=== PATIENT | male | born 1970 | race Two or more races ===

== ENCOUNTER 2020-03-21 16:36 | Emergency (ER) | payer OTHER ==
[~2020-03-21] VITALS: Ht 172.7 cm; Wt 105.7 kg
[2020-03-21] MEDS ORDERED: HUMULIN R500 UNIT/2 SQ (16:50)
[2020-03-21] MEDS ORDERED: GLIMEPIRIDE4 MG (16:50)
[2020-03-21] MEDS ORDERED: COZAAR50 MG PO (16:51)
[2020-03-21] MEDS ORDERED: RESTORIL30 M1 PO (16:51)
[2020-03-21] MEDS ORDERED: ADULT LOW DOSE81 M1 PO (16:51)
[2020-03-21] MEDS ORDERED: LIPITOR40 MG PO (16:51)
[2020-03-21] MEDS ORDERED: EFFEXOR XR37.5 MG PO (16:52)
[2020-03-21] MEDS ORDERED: TRADJENTA5 MG PO (16:52)
[2020-03-21] MEDS ORDERED: GEMFIBROZIL600 MG (16:53)
[2020-03-21] MEDS ORDERED: AMOXICILLIN875 MG PO (16:54)
[2020-03-21] MEDS ORDERED: PRILOSEC OTC20 MG PO (16:54)
[2020-03-21] MEDS ORDERED: CLONAZEPAM2 MG PO (16:54)
[2020-03-21] MEDS ORDERED: CARAFATE1 GM PO (16:55)
[2020-03-21] MEDS ORDERED: LANTUS SOL100 UNIT/1 SQ (16:55)
[2020-03-21] MEDS ORDERED: DICLOFENAC SODI75 MG PO (18:03)
== END 2020-03-21 18:36 | disposition home or self-care (01) ==
LOC: ER 16:36
DX: M54.89 Other dorsalgia (principal); R10.11 Right upper quadrant pain; Z03.818 Encounter for observation for suspected exposure to other biological agents ruled out

== ENCOUNTER 2020-03-24 19:11 | Emergency (ER) | payer OTHER ==
[~2020-03-24] VITALS: Ht 172.7 cm; Wt 105.7 kg
[~2020-03-24 19:11] MED LIST: ADULT LOW DOSE81 M1 PO; AMOXICILLIN875 MG PO; CARAFATE1 GM PO; CLONAZEPAM2 MG PO; COZAAR50 MG PO; DICLOFENAC SODI75 MG PO; EFFEXOR XR37.5 MG PO; GEMFIBROZIL600 MG; GLIMEPIRIDE4 MG; HUMULIN R500 UNIT/2 SQ; LANTUS SOL100 UNIT/1 SQ; LIPITOR40 MG PO; PRILOSEC OTC20 MG PO; RESTORIL30 M1 PO; TRADJENTA5 MG PO
== END 2020-03-24 21:19 | disposition home or self-care (01) ==
LOC: ER 19:11
DX: H66.93 Otitis media, unspecified, bilateral (principal); R51.9 Headache, unspecified

== ENCOUNTER 2020-03-30 16:57 | Emergency (ER) | payer OTHER ==
[~2020-03-30] VITALS: Ht 172.7 cm; Wt 105.7 kg
[2020-03-30] MEDS ORDERED: NAPROXEN SODIU275 MG PO (21:14)
[2020-03-30] MEDS ORDERED: ACETAMINOPHEN650 M2 PO (21:14)
== END 2020-03-30 21:50 | disposition home or self-care (01) ==
LOC: ER 16:57
DX: H92.02 Otalgia, left ear (principal); H72.92 Unspecified perforation of tympanic membrane, left ear

== ENCOUNTER → 2020-04-11 | Emergency (ER) | payer OTHER ==
[~2020-04-11] VITALS: Ht 172.7 cm; Wt 65.3 kg
[~2020-04-11] MED LIST changes: +ACETAMINOPHEN650 M2 PO; +NAPROXEN SODIU275 MG PO
== END | disposition home or self-care (01) ==
LOC: ER 18:23
DX: U07.1 COVID-19 (principal); B34.9 Viral infection, unspecified

== ENCOUNTER 2020-04-15 16:06 | Emergency (ER) | payer OTHER ==
[~2020-04-15] VITALS: Ht 172.7 cm; Wt 54.4 kg
== END 2020-04-16 02:32 | disposition home or self-care (01) ==
LOC: ER 16:06
DX: B34.9 Viral infection, unspecified (principal); Z20.828 Contact with and (suspected) exposure to other viral communicable diseases

== ENCOUNTER 2020-06-21 11:15 | Outpatient (CLI) | payer OTHER | END 2020-06-21 11:19 | disposition home or self-care (01) | LOC: RAD 11:15 | PROVIDERS: ATTEND Orthopaedic Surgery | DX: M51.36 Other intervertebral disc degeneration, lumbar region (principal) ==

== ENCOUNTER 2020-08-04 15:30 | Emergency (ER) | payer OTHER ==
[~2020-08-04] VITALS: Ht 172.7 cm; Wt 108.9 kg
[2020-08-04] MEDS ORDERED: AMBIEN5 MG (15:47)
[2020-08-04] MEDS ORDERED: HUMALOG100 UNIT/2 (15:47)
[2020-08-04] MEDS ORDERED: ACID REDUCER20 M1 (15:48)
[2020-08-04] MEDS ORDERED: CARAFATE1 GM (15:48)
[2020-08-04] MEDS ORDERED: PEPCID AC20 MG PO (23:43)
[2020-08-04] MEDS ORDERED: ULTRAM50 MG PO (23:43)
== END 2020-08-05 00:04 ==
LOC: ER 15:30
DX: R10.12 Left upper quadrant pain (principal)

== ENCOUNTER 2020-08-15 18:13 | Emergency (ER) | payer OTHER ==
[~2020-08-15] VITALS: Ht 172.7 cm; Wt 108.9 kg
[~2020-08-15 18:13] MED LIST changes: +ACID REDUCER20 M1; +AMBIEN5 MG; +CARAFATE1 GM; +HUMALOG100 UNIT/2; +PEPCID AC20 MG PO; +ULTRAM50 MG PO
[2020-08-15] MEDS ORDERED: NABUMETONE750 MG PO (19:50)
== END 2020-08-15 20:10 | disposition home or self-care (01) ==
LOC: ER 18:13
DX: S20.213A Contusion of bilateral front wall of thorax, initial encounter (principal); S80.01XA Contusion of right knee, initial encounter; W10.8XXA Fall (on) (from) other stairs and steps, initial encounter; Y93.89 Activity, other specified; Y92.89 Other specified places as the place of occurrence of the external cause; Y99.8 Other external cause status

== ENCOUNTER 2020-09-05 11:29 | Outpatient (CLI) | payer OTHER ==
[~2020-09-05 11:29] MED LIST changes: +NABUMETONE750 MG PO
== END 2020-09-05 11:35 | disposition home or self-care (01) ==
LOC: RAD 11:29
PROVIDERS: ATTEND Chiropractor
DX: M99.01 Segmental and somatic dysfunction of cervical region (principal); M99.02 Segmental and somatic dysfunction of thoracic region; M99.03 Segmental and somatic dysfunction of lumbar region; M99.05 Segmental and somatic dysfunction of pelvic region

== ENCOUNTER 2021-01-18 16:12 | Emergency (ER) | payer OTHER ==
[~2021-01-18] VITALS: Ht 172.7 cm; Wt 110.7 kg
[2021-01-18] MEDS ORDERED: NORFLEX100MG PO (20:11)
[2021-01-18] MEDS ORDERED: AMRIX30 MG PO (20:11)
== END 2021-01-19 | disposition home or self-care (01) ==
LOC: ER 16:12
DX: M25.512 Pain in left shoulder (principal); M25.511 Pain in right shoulder; M62.512 Muscle wasting and atrophy, not elsewhere classified, left shoulder; M62.511 Muscle wasting and atrophy, not elsewhere classified, right shoulder; Z03.818 Encounter for observation for suspected exposure to other biological agents ruled out

== ENCOUNTER 2021-02-25 18:33 | Emergency (ER) | payer OTHER ==
[~2021-02-25] VITALS: Ht 172.7 cm; Wt 106.1 kg
[~2021-02-25 18:33] MED LIST changes: +AMRIX30 MG PO; +NORFLEX100MG PO
[2021-02-25] MEDS ORDERED: PROTONIX40 M1 PO (19:08)
== END 2021-02-25 20:40 | disposition home or self-care (01) ==
LOC: ER 18:33
DX: M25.511 Pain in right shoulder (principal); M25.512 Pain in left shoulder

== ENCOUNTER 2021-03-10 13:55 | Emergency (ER) | payer OTHER ==
[~2021-03-10] VITALS: Ht 172.7 cm; Wt 104.8 kg
[~2021-03-10 13:55] MED LIST changes: +PROTONIX40 M1 PO
[2021-03-10] MEDS ORDERED: PEPCID20 MG PO (19:35)
[2021-03-10] MEDS ORDERED: PROTONIX20 MG PO (19:35)
== END 2021-03-10 20:04 | disposition home or self-care (01) ==
LOC: ER 13:55
DX: K52.89 Other specified noninfective gastroenteritis and colitis (principal)

== ENCOUNTER 2021-03-12 11:22 | Emergency (ER) | payer OTHER ==
[~2021-03-12] VITALS: Ht 172.7 cm; Wt 104.8 kg
[~2021-03-12 11:22] MED LIST changes: +PEPCID20 MG PO; +PROTONIX20 MG PO
[2021-03-12] MEDS ORDERED: FENOFIBRATE150 MG (12:05)
[2021-03-12] MEDS ORDERED: DICLOFENAC POTA50 MG PO (16:14)
== END 2021-03-12 17:12 ==
LOC: ER 11:22
DX: N20.0 Calculus of kidney (principal); R10.31 Right lower quadrant pain

== ENCOUNTER 2021-03-29 14:16 | Emergency (ER) | payer OTHER ==
[~2021-03-29] VITALS: Ht 172.7 cm; Wt 105.2 kg
[~2021-03-29 14:16] MED LIST changes: +DICLOFENAC POTA50 MG PO; +FENOFIBRATE150 MG
== END 2021-03-29 19:42 | disposition home or self-care (01) ==
LOC: ER 14:16
DX: R10.9 Unspecified abdominal pain (principal)

== ENCOUNTER 2021-11-04 19:50 | Emergency (ER) | payer OTHER ==
[~2021-11-04] VITALS: Ht 172.7 cm; Wt 95.3 kg
[2021-11-04] MEDS ORDERED: GLUCOTROL XL5 MG (20:41)
[2021-11-04] MEDS ORDERED: JARDIANCE25 MG (20:42)
[2021-11-04] MEDS ORDERED: RESTORIL15 M1 (20:43)
== END 2021-11-05 03:39 ==
LOC: ER 19:50
DX: U07.1 COVID-19 (principal); I10 Essential (primary) hypertension; E11.9 Type 2 diabetes mellitus without complications; Z79.4 Long term (current) use of insulin; Z79.84 Long term (current) use of oral hypoglycemic drugs

== ENCOUNTER 2021-11-19 16:34 | Emergency (ER) | payer OTHER ==
[~2021-11-19] VITALS: Ht 172.7 cm; Wt 90.7 kg
[~2021-11-19 16:34] MED LIST changes: +GLUCOTROL XL5 MG; +JARDIANCE25 MG; +RESTORIL15 M1
[2021-11-19] MEDS ORDERED: TRADJENTA5 MG PO (17:26)
== END 2021-11-19 21:44 | disposition home or self-care (01) ==
LOC: ER 16:34
DX: N20.0 Calculus of kidney (principal); R10.9 Unspecified abdominal pain; E11.65 Type 2 diabetes mellitus with hyperglycemia; K40.90 Unilateral inguinal hernia, without obstruction or gangrene, not specified as recurrent

== ENCOUNTER 2021-12-10 15:31 | Emergency (ER) | payer OTHER ==
[~2021-12-10] VITALS: Ht 172.7 cm; Wt 88.5 kg
[2021-12-10] MEDS ORDERED: PEPCID AC20 MG PO (19:33)
[2021-12-10] MEDS ORDERED: LEVSIN/SL0.125 MG SL (19:33)
== END 2021-12-10 19:56 | disposition home or self-care (01) ==
LOC: ER 15:31
DX: R10.32 Left lower quadrant pain (principal); E11.9 Type 2 diabetes mellitus without complications; Z79.4 Long term (current) use of insulin; I10 Essential (primary) hypertension

== ENCOUNTER 2021-12-15 10:03 | Emergency (ER) | payer OTHER ==
[~2021-12-15] VITALS: Ht 172.7 cm; Wt 90.7 kg
[~2021-12-15 10:03] MED LIST changes: +LEVSIN/SL0.125 MG SL
[2021-12-15] MEDS ORDERED: RESTORIL30 M1 PO (10:22)
[2021-12-15] MEDS ORDERED: JARDIANCE25 MG PO (10:23)
[2021-12-15] MEDS ORDERED: HUMALOG100 UNIT/2 (10:24)
[2021-12-15] MEDS ORDERED: LANTUS SOL100 UNIT/1 (10:24)
[2021-12-15] MEDS ORDERED: WELLBUTRIN SR150 MG PO (10:25)
[2021-12-15] MEDS ORDERED: OMEPRAZOLE MAGN20 MG PO (10:25)
[2021-12-15] MEDS ORDERED: EFFER-K 20 MEQ20 MEQ (10:26)
[2021-12-15] MEDS ORDERED: LIPITOR40 MG (10:27)
[2021-12-15] MEDS ORDERED: FENOFIBRATE150 MG (10:28)
[2021-12-15] MEDS ORDERED: CLONAZEPAM2 MG PO (10:29)
[2021-12-15] MEDS ORDERED: LEVSIN/SL0.125 MG SL (17:40)
[2021-12-15] MEDS ORDERED: PEPCID AC20 MG PO (17:40)
== END 2021-12-15 18:13 | disposition home or self-care (01) ==
LOC: ER 10:03
DX: R10.11 Right upper quadrant pain (principal); N20.0 Calculus of kidney; I10 Essential (primary) hypertension; E11.9 Type 2 diabetes mellitus without complications; Z79.4 Long term (current) use of insulin

== ENCOUNTER 2021-12-28 18:25 | Emergency (ER) | payer OTHER ==
[~2021-12-28] VITALS: Ht 172.7 cm; Wt 88.0 kg
[~2021-12-28 18:25] MED LIST changes: +EFFER-K 20 MEQ20 MEQ; +JARDIANCE25 MG PO; +LANTUS SOL100 UNIT/1; +LIPITOR40 MG; +OMEPRAZOLE MAGN20 MG PO; +WELLBUTRIN SR150 MG PO
== END 2021-12-28 21:48 | disposition home or self-care (01) ==
LOC: ER 18:25
DX: J32.9 Chronic sinusitis, unspecified (principal); E11.9 Type 2 diabetes mellitus without complications; Z79.4 Long term (current) use of insulin; Z79.84 Long term (current) use of oral hypoglycemic drugs; I10 Essential (primary) hypertension; Z20.822 Contact with and (suspected) exposure to COVID-19

== ENCOUNTER 2022-03-23 11:28 | Emergency (ER) | payer OTHER ==
[~2022-03-23] VITALS: Ht 172.7 cm; Wt 87.5 kg
[2022-03-23] MEDS ORDERED: CLARITIN10 M1 PO (15:59)
[2022-03-23] MEDS ORDERED: NORFLEX100MG PO (15:59)
[2022-03-23] MEDS ORDERED: KETO10TA2 PO (15:59)
== END 2022-03-23 17:41 | disposition home or self-care (01) ==
LOC: ER 11:28
DX: M54.2 Cervicalgia (principal); Z20.822 Contact with and (suspected) exposure to COVID-19

== ENCOUNTER 2022-03-29 15:35 | Emergency (ER) | payer OTHER ==
[~2022-03-29] VITALS: Ht 172.7 cm; Wt 88.9 kg
[~2022-03-29 15:35] MED LIST changes: +CLARITIN10 M1 PO; +KETO10TA2 PO
== END 2022-03-29 22:47 | disposition home or self-care (01) ==
LOC: ER 15:35
DX: K52.9 Noninfective gastroenteritis and colitis, unspecified (principal)

== ENCOUNTER 2022-04-25 09:48 | Emergency (ER) | payer OTHER ==
[~2022-04-25] VITALS: Ht 172.7 cm; Wt 84.8 kg
== END 2022-04-25 16:14 | disposition home or self-care (01) ==
LOC: ER 09:48
DX: M54.50 Low back pain, unspecified (principal); E11.9 Type 2 diabetes mellitus without complications; Z79.4 Long term (current) use of insulin; I10 Essential (primary) hypertension; Z20.822 Contact with and (suspected) exposure to COVID-19

== ENCOUNTER 2022-04-26 01:15 | Emergency (ER) | payer OTHER ==
[~2022-04-26] VITALS: Ht 172.7 cm; Wt 83.9 kg
== END 2022-04-26 06:25 | disposition home or self-care (01) ==
LOC: ER 01:15
DX: R19.7 Diarrhea, unspecified (principal)

== ENCOUNTER 2022-04-26 18:43 | Emergency (ER) | payer OTHER ==
[~2022-04-26] VITALS: Ht 172.7 cm; Wt 83.5 kg
== END 2022-04-26 22:11 | disposition home or self-care (01) ==
LOC: ER 18:43
DX: M54.9 Dorsalgia, unspecified (principal)

== ENCOUNTER 2022-07-04 20:02 | Emergency (ER) | payer OTHER ==
[~2022-07-04] VITALS: Ht 172.7 cm; Wt 83.0 kg
[2022-07-04] MEDS ORDERED: AMBIEN10 MG PO (20:14)
[2022-07-04] MEDS ORDERED: TRAZODONE HCL150 MG PO (20:14)
[2022-07-04] MEDS ORDERED: SEROQUEL50 MG PO (20:14)
[2022-07-04] MEDS ORDERED: OSTERA TABLET1 EACH PO (20:14)
[2022-07-04] MEDS ORDERED: VISTARIL50 MG/ML IM (20:15)
[2022-07-04] MEDS ORDERED: ACID REDUCER20 M1 PO (20:15)
[2022-07-04] MEDS ORDERED: CLINDAMYCI75 MG/5 M1 PO (20:16)
[2022-07-04] MEDS ORDERED: MOTRIN IB200 M1 PO (20:17)
[2022-07-04] MEDS ORDERED: CYCLOBENZAPRINE10 MG PO (20:18)
== END 2022-07-04 22:12 | disposition home or self-care (01) ==
LOC: ER 20:02
DX: L50.9 Urticaria, unspecified (principal); R19.7 Diarrhea, unspecified

== ENCOUNTER 2022-07-21 18:37 | Emergency (ER) | payer OTHER ==
[~2022-07-21] VITALS: Ht 172.7 cm; Wt 83.9 kg
[~2022-07-21 18:37] MED LIST changes: +ACID REDUCER20 M1 PO; +AMBIEN10 MG PO; +CLINDAMYCI75 MG/5 M1 PO; +CYCLOBENZAPRINE10 MG PO; +MOTRIN IB200 M1 PO; +OSTERA TABLET1 EACH PO; +SEROQUEL50 MG PO; +TRAZODONE HCL150 MG PO; +VISTARIL50 MG/ML IM
== END 2022-07-21 21:52 | disposition home or self-care (01) ==
LOC: ER 18:37
DX: M54.59 Other low back pain (principal); M54.2 Cervicalgia; M25.512 Pain in left shoulder; E11.9 Type 2 diabetes mellitus without complications; Z79.84 Long term (current) use of oral hypoglycemic drugs; Z79.4 Long term (current) use of insulin

== ENCOUNTER 2022-11-11 13:42 | Emergency (ER) | payer OTHER ==
[~2022-11-11] VITALS: Ht 172.7 cm; Wt 83.9 kg
[2022-11-11] MEDS ORDERED: GLYCOTROL CAPS1 EACH PO (14:07)
[2022-11-11] MEDS ORDERED: FLONASE16 GM IH (16:59)
[2022-11-11] MEDS ORDERED: ZITHROMAX500 MG PO (16:59)
[2022-11-11] MEDS ORDERED: ZYRTEC10 M3 PO (16:59)
== END 2022-11-11 17:00 | disposition home or self-care (01) ==
LOC: ER 13:42
DX: J06.9 Acute upper respiratory infection, unspecified (principal); Z20.822 Contact with and (suspected) exposure to COVID-19; E11.9 Type 2 diabetes mellitus without complications

== ENCOUNTER 2022-12-10 19:46 | Emergency (ER) | payer OTHER ==
[~2022-12-10] VITALS: Ht 172.7 cm; Wt 91.6 kg
[~2022-12-10 19:46] MED LIST changes: +FLONASE16 GM IH; +GLYCOTROL CAPS1 EACH PO; +ZITHROMAX500 MG PO; +ZYRTEC10 M3 PO
[2022-12-10] MEDS ORDERED: VISTARIL50 MG (20:06)
== END 2022-12-10 23:51 | disposition home or self-care (01) ==
LOC: ER 19:46
DX: M62.838 Other muscle spasm (principal)

== ENCOUNTER 2023-02-02 11:46 | Emergency (ER) | payer OTHER ==
[~2023-02-02] VITALS: Ht 172.7 cm; Wt 90.7 kg
[~2023-02-02 11:46] MED LIST changes: +VISTARIL50 MG
[2023-02-02] MEDS ORDERED: DICLOFENAC SODI75 MG PO (18:21)
[2023-02-02] MEDS ORDERED: NORFLEX100MG PO (18:21)
== END 2023-02-02 18:32 | disposition home or self-care (01) ==
LOC: ER 11:46
DX: M62.838 Other muscle spasm (principal); E11.9 Type 2 diabetes mellitus without complications; Z79.4 Long term (current) use of insulin

== ENCOUNTER 2023-03-02 16:55 | Emergency (ER) | payer OTHER ==
[~2023-03-02] VITALS: Ht 172.7 cm; Wt 93.9 kg
== END 2023-03-02 20:45 | disposition home or self-care (01) ==
LOC: ER 16:55
DX: M26.622 Arthralgia of left temporomandibular joint (principal)
CPT/HCPCS: 70110; 96372; 99284; J1885

== ENCOUNTER 2023-03-25 08:48 | Emergency (ER) | payer OTHER ==
[~2023-03-25] VITALS: Ht 172.7 cm; Wt 97.1 kg
[2023-03-25 10:11] LABS: HEMATOCRIT 37.8 % (39.0-48.0); MEAN CELL VOLUME 92.9 fL (80.0-100.00); MEAN CORPUSCULAR HEMOGLOBIN 31.9 pg (27.00-32.0); MEAN CORPUSCULAR HGB CONC 34.4 g/dl (32.0-36.0); PLATELET COUNT 233 K/uL (150-450); RED BLOOD COUNT 4.07 M/uL (4.00-6.00); RED CELL DISTRIBUTION WIDTH 12.3 % (11.5-14.5)
[2023-03-25 10:47] LABS: CALCIUM 9.2 mg/dL (8.5-10.1); CREATININE SERUM 0.82 mg/dL (0.70-1.30); GFR 98.66; POTASSIUM 3.82 mEq/L (3.5-5.1)
== END 2023-03-25 15:34 | disposition home or self-care (01) ==
LOC: ER 08:48
PROVIDERS: Emergency Medicine
DX: K52.9 Noninfective gastroenteritis and colitis, unspecified (principal); E11.9 Type 2 diabetes mellitus without complications; Z79.4 Long term (current) use of insulin; I10 Essential (primary) hypertension; E03.9 Hypothyroidism, unspecified

== ENCOUNTER 2023-04-09 19:20 | Emergency (ER) | payer OTHER ==
[~2023-04-09] VITALS: Ht 172.7 cm; Wt 95.3 kg
[2023-04-09 21:55] LABS: HEMATOCRIT 39.5 % (39.0-48.0); HEMOGLOBIN 13.7 g/dL (13-16.00); MEAN CELL VOLUME 94.1 fL (80.0-100.00); MEAN CORPUSCULAR HEMOGLOBIN 32.5 pg (27.00-32.0); MEAN CORPUSCULAR HGB CONC 34.6 g/dl (32.0-36.0); PLATELET COUNT 263 K/uL (150-450); RED CELL DISTRIBUTION WIDTH 12.2 % (11.5-14.5)
[2023-04-09] MEDS ORDERED: ZITHROMAX500 MG PO (22:29)
== END 2023-04-09 22:52 | disposition home or self-care (01) ==
LOC: ER 19:20
PROVIDERS: General Practice
DX: B34.9 Viral infection, unspecified (principal); Z20.822 Contact with and (suspected) exposure to COVID-19; E11.9 Type 2 diabetes mellitus without complications; Z79.4 Long term (current) use of insulin; Z79.84 Long term (current) use of oral hypoglycemic drugs

== ENCOUNTER 2023-04-22 20:27 | Emergency (ER) | payer OTHER ==
[~2023-04-22] VITALS: Ht 172.7 cm; Wt 96.2 kg
[2023-04-22 21:43] LABS: HEMATOCRIT 38.9 % (39.0-48.0); HEMOGLOBIN 13.8 g/dL (13-16.00); MEAN CELL VOLUME 92.6 fL (80.0-100.00); MEAN CORPUSCULAR HEMOGLOBIN 32.8 pg (27.00-32.0); MEAN CORPUSCULAR HGB CONC 35.4 g/dl (32.0-36.0); PLATELET COUNT 229 K/uL (150-450); RED CELL DISTRIBUTION WIDTH 12.7 % (11.5-14.5)
[2023-04-22] MEDS ORDERED: ZITHROMAX500 MG PO (22:09)
[2023-04-22] MEDS ORDERED: TUSNEL LIQUID178 ML PO (22:09)
== END 2023-04-22 22:23 | disposition home or self-care (01) ==
LOC: ER 20:27
PROVIDERS: General Practice
DX: J06.9 Acute upper respiratory infection, unspecified (principal); E11.9 Type 2 diabetes mellitus without complications; Z79.4 Long term (current) use of insulin; I10 Essential (primary) hypertension; Z20.822 Contact with and (suspected) exposure to COVID-19

== ENCOUNTER 2024-01-20 18:54 | Emergency (ER) | payer OTHER ==
[~2024-01-20] VITALS: Ht 172.7 cm; Wt 77.1 kg
[~2024-01-20 18:54] MED LIST changes: +DUI500 PO; +TUSNEL LIQUID178 ML PO
[2024-01-20] MEDS ORDERED: KETOROLAC TROMETHAMINE 60 MG VIAL IM ONE ×2 (19:30→19:39)
[2024-01-20] MEDS ORDERED: GUAIFENESIN/DEXTROMETHORPHAN 10ML BLIST.PACK PO ONE ×2 (19:30→19:39)
[2024-01-20] MEDS ORDERED: AZITHROMYCIN 500 MG TABLET PO ONE ×2 (19:30→19:39)
[2024-01-20 20:26] LABS: HEMATOCRIT 41.8 % (39.0-48.0); HEMOGLOBIN 13.7 g/dL (13-16.00); MEAN CELL VOLUME 97.1 fL (80.0-100.00); MEAN CORPUSCULAR HEMOGLOBIN 31.9 pg (27.00-32.0); MEAN CORPUSCULAR HGB CONC 32.8 g/dl (32.0-36.0); PLATELET COUNT 200 K/uL (150-450); RED CELL DISTRIBUTION WIDTH 12.6 % (11.5-14.5)
[2024-01-20] MEDS ORDERED: ZYRTEC10 M3 PO (21:05)
== END 2024-01-20 21:43 | disposition home or self-care (01) ==
LOC: ER 18:56
PROVIDERS: General Practice
DX: R53.81 Other malaise (principal); J06.9 Acute upper respiratory infection, unspecified; Z20.822 Contact with and (suspected) exposure to COVID-19; I10 Essential (primary) hypertension; E11.9 Type 2 diabetes mellitus without complications; Z79.4 Long term (current) use of insulin

== ENCOUNTER 2024-02-03 05:52 | Emergency (ER) | payer OTHER ==
[~2024-02-03] VITALS: Ht 172.7 cm; Wt 79.4 kg
[2024-02-03] MEDS ORDERED: MEPERIDINE HCL/PF 50 MG/ML VIAL IM STA (06:58)
[2024-02-03] MEDS ORDERED: PROMETHAZINE HCL 50 MG/ML AMPUL IM STA (06:59)
[2024-02-03] MEDS ORDERED: FAMOTIDINE/PF 20 MG/2 ML VIAL IV PUSH STA (07:01)
[2024-02-03] MEDS ORDERED: 0.9 % SODIUM CHLORIDE 1,000 ML IV ONE (07:15)
[2024-02-03 08:29] LABS: HEMATOCRIT 35.8 % (39.0-48.0); HEMOGLOBIN 12.3 g/dL (13-16.00); MEAN CELL VOLUME 92.5 fL (80.0-100.00); MEAN CORPUSCULAR HEMOGLOBIN 31.7 pg (27.00-32.0); MEAN CORPUSCULAR HGB CONC 34.3 g/dl (32.0-36.0); PLATELET COUNT 195 K/uL (150-450); RED BLOOD COUNT 3.87 M/uL (4.00-6.00); RED CELL DISTRIBUTION WIDTH 12.7 % (11.5-14.5)
[2024-02-03 08:43] LABS: ALBUMIN 3.4 gm/dL (3.4-5.0); ALKALINE PHOSPHATASE 72 U/L (50-136); ALT/SGPT 17 U/L (12-78); AMYLASE 76 U/L (25-115); ANION GAP 10 (10.0-20.0); AST/SGOT 11 U/L (15-37); BILIRUBIN TOTAL 0.39 mg/dL (0.3-1.2); BILIRUBIN,CONJUGATED < 0.10 mg/dL (0.0-0.2); BILIRUBIN,UNCONJUGATED 0.29 mg/dL (0.0-0.6); BLOOD UREA NITROGEN 18 mg/dL (7-18); BUN CREA RATIO 21 (7.0-25.0); CALCIUM 9.2 mg/dL (8.5-10.1); CARBON DIOXIDE 25 mEq/L (21-32); CHLORIDE 108 mmol/L (98-107); CREATININE SERUM 0.84 mg/dL (0.70-1.30); GFR 95.58; GLUCOSE FASTING 117 mg/dL (65-100); INR 0.95; LIPASE 40 U/L (13-75); OSMOLALITY SERUM 282 MOSM/KG (275-295); PARTIAL THROMBOPLASTIN TIME 27.5 SECONDS (22.0-34.0); POTASSIUM 3.45 mEq/L (3.5-5.1); PROTHROMBIN TIME 10.4 SECONDS (9.0-11.5); SODIUM 140 mmol/L (136-145); TOTAL PROTEIN 6.4 gm/dL (6.4-8.2)
== END 2024-02-03 10:45 | disposition home or self-care (01) ==
LOC: ER 05:53
PROVIDERS: General Practice
DX: R10.11 Right upper quadrant pain (principal); R10.13 Epigastric pain; R10.9 Unspecified abdominal pain

== ENCOUNTER 2024-02-09 07:16 | Emergency (ER) | payer OTHER ==
[~2024-02-09] VITALS: Ht 172.7 cm; Wt 79.4 kg
[2024-02-09 07:29] VITALS: BP 134/81; O2SAT 98
[2024-02-09] MEDS ORDERED: RINGERS SOLUTION,LACTATED 1,000 ML IV STA (08:21)
[2024-02-09] MEDS ORDERED: FAMOtidine 10 MG/ML (4ML VIAL) IV STA (08:21)
[2024-02-09] MEDS ORDERED: MORPHINE SULFATE 4 MG/ML VIAL IV STA ×2 (08:23→12:26)
[2024-02-09] MEDS ORDERED: ONDANSETRON HCL 2 MG/ML VIAL IV ONE (08:30)
[2024-02-09 09:09] LABS: HEMATOCRIT 39.6 % (39.0-48.0); HEMOGLOBIN 13.4 g/dL (13-16.00); MEAN CELL VOLUME 93.9 fL (80.0-100.00); MEAN CORPUSCULAR HEMOGLOBIN 31.8 pg (27.00-32.0); MEAN CORPUSCULAR HGB CONC 33.9 g/dl (32.0-36.0); PLATELET COUNT 257 K/uL (150-450); RED BLOOD COUNT 4.22 M/uL (4.00-6.00); RED CELL DISTRIBUTION WIDTH 12.6 % (11.5-14.5)
[2024-02-09 09:33] LABS: ALBUMIN 3.7 gm/dL (3.4-5.0); ALKALINE PHOSPHATASE 85 U/L (50-136); ALT/SGPT 17 U/L (12-78); AMYLASE 60 U/L (25-115); ANION GAP 14 (10.0-20.0); AST/SGOT 13 U/L (15-37); BILIRUBIN TOTAL 0.27 mg/dL (0.3-1.2); BILIRUBIN,CONJUGATED < 0.10 mg/dL (0.0-0.2); BILIRUBIN,UNCONJUGATED 0.17 mg/dL (0.0-0.6); BLOOD UREA NITROGEN 18 mg/dL (7-18); BUN CREA RATIO 22 (7.0-25.0); CALCIUM 8.4 mg/dL (8.5-10.1); CARBON DIOXIDE 21 mEq/L (21-32); CHLORIDE 107 mmol/L (98-107); CREATININE SERUM 0.81 mg/dL (0.70-1.30); GFR 99.68; LIPASE 38 U/L (13-75); OSMOLALITY SERUM 284 MOSM/KG (275-295); POTASSIUM 3.58 mEq/L (3.5-5.1); SODIUM 138 mmol/L (136-145); TOTAL PROTEIN 7.6 gm/dL (6.4-8.2)
[2024-02-09 09:36] LABS: GLUCOSE FASTING 218 mg/dL (65-100)
[2024-02-09 11:57] LABS: URINE APPEARANCE Clear; URINE BILIRRUBIN Negative (NEGATIVE); URINE BLOOD Negative; URINE COLOR Yellow; URINE KETONE Negative (NEGATIVE); URINE LEUKOCYTE Negative; URINE NITRATE Negative; URINE PROTEIN Negative (NEGATIVE); URINE UROBILINOGEN 0.2 E.U./dl
[2024-02-09 12:10] LABS: URINE BACTERIA 0 uL (0.0-1933); URINE EPITHELIAL CELLS 0.1 uL (0.0-38.8); URINE GLUCOSE >=1000 MG/DL (NEGATIVE); URINE WBC 0.4 uL (0.0-23.2)
[2024-02-09] MEDS ORDERED: 0.9 % SODIUM CHLORIDE 1,000 ML IV STA (13:15)
[2024-02-09] MEDS ORDERED: METOCLOPRAMIDE HCL 5 MG/ML VIAL IV SCH (13:45)
== END 2024-02-09 15:13 | disposition home or self-care (01) ==
LOC: ER 07:17
PROVIDERS: General Practice
DX: K29.70 Gastritis, unspecified, without bleeding (principal); R10.9 Unspecified abdominal pain; E88.810 Metabolic syndrome; K85.90 Acute pancreatitis without necrosis or infection, unspecified; F32.A Depression, unspecified; E11.9 Type 2 diabetes mellitus without complications; Z79.4 Long term (current) use of insulin; E78.00 Pure hypercholesterolemia, unspecified; I10 Essential (primary) hypertension; N20.0 Calculus of kidney; K57.30 Diverticulosis of large intestine without perforation or abscess without bleeding

== ENCOUNTER 2024-03-03 20:42 | Emergency (ER) | payer OTHER ==
[~2024-03-03] VITALS: Ht 167.6 cm; Wt 68.0 kg
[2024-03-03 22:29] LABS: HEMOGLOBIN 13.2 g/dL (13-16.00); MEAN CELL VOLUME 93.1 fL (80.0-100.00); MEAN CORPUSCULAR HEMOGLOBIN 32.2 pg (27.00-32.0); MEAN CORPUSCULAR HGB CONC 34.6 g/dl (32.0-36.0); PLATELET COUNT 290 K/uL (150-450); RED BLOOD COUNT 4.08 M/uL (4.00-6.00); RED CELL DISTRIBUTION WIDTH 12.9 % (11.5-14.5)
[2024-03-03 22:53] LABS: ALBUMIN 4.2 gm/dL (3.4-5.0); BILIRUBIN TOTAL 0.21 mg/dL (0.3-1.2); CALCIUM 9.3 mg/dL (8.5-10.1); CREATININE SERUM 0.99 mg/dL (0.70-1.30); GFR 79.08; GLOBULINA 3.7 G/DL (2.4-3.5); POTASSIUM 3.88 mEq/L (3.5-5.1); TOTAL PROTEIN 7.9 gm/dL (6.4-8.2)
[2024-03-03] MEDS ORDERED: KETOROLAC TROMETHAMINE 30 MG VIAL IM STA (23:23)
== END 2024-03-03 23:50 | disposition home or self-care (01) ==
LOC: ER 20:44
PROVIDERS: General Practice
DX: R10.11 Right upper quadrant pain (principal); R10.9 Unspecified abdominal pain

== ENCOUNTER 2024-03-08 19:17 | Emergency (ER) | payer OTHER ==
[~2024-03-08] VITALS: Ht 172.7 cm; Wt 77.1 kg
[2024-03-08 19:31] VITALS: BP 142/82; O2SAT 98
[2024-03-08] MEDS ORDERED: KETOROLAC TROMETHAMINE 60 MG VIAL IM STA (19:55)
[2024-03-08] MEDS ORDERED: DEXAMETHASONE SODIUM PHOSPHATE 4 MG/ML VIAL IM STA (19:56)
[2024-03-08] MEDS ORDERED: OxyCODONE HCL/APAP UD (PERCOCET) PO STA (19:56)
== END 2024-03-08 22:09 | disposition home or self-care (01) ==
LOC: ER 19:19
DX: S20.20XA Contusion of thorax, unspecified, initial encounter (principal); X58.XXXA Exposure to other specified factors, initial encounter; Y93.89 Activity, other specified; Y92.89 Other specified places as the place of occurrence of the external cause; Y99.8 Other external cause status; R07.9 Chest pain, unspecified; R10.9 Unspecified abdominal pain

== ENCOUNTER 2024-03-11 10:37 | Emergency (ER) | payer OTHER ==
[~2024-03-11] VITALS: Ht 172.7 cm; Wt 78.5 kg
== END 2024-03-11 14:09 | disposition home or self-care (01) ==
LOC: ER 10:39
DX: S22.31XA Fracture of one rib, right side, initial encounter for closed fracture (principal); I10 Essential (primary) hypertension; F32.9 Major depressive disorder, single episode, unspecified; E11.9 Type 2 diabetes mellitus without complications; Z79.4 Long term (current) use of insulin